=== PATIENT | female | born 1980 | race Caucasian/White ===

== ENCOUNTER 2016-04-29 12:23 | Emergency (ER) | payer MEDICAID ==
[2016-04-29] MEDS ORDERED: OPTIRAY 350 100 ML VIAL HMH IV ONE (12:24)
[2016-04-29] MEDS ORDERED: ONDANSETRON 4 MG VIAL ONE (13:55)
[2016-04-29] MEDS ORDERED: MORPHINE 4 MG/ML SYR ONE (13:56)
[2016-04-29] MEDS ORDERED: SODIUM CHLORIDE 0.9% 1,000 ML ONE (13:56)
[2016-04-29] MEDS ORDERED: DILAUDID 1 MG/ML AMP ONE (15:54)
[2016-04-29] MEDS ORDERED: PANTOPRAZOLE 40 MG VIAL IV ONE (16:27)
== END 2016-04-29 18:00 | disposition home or self-care (01) ==
LOC: ER 12:23
DX: R10.84 Generalized abdominal pain (principal); Z98.890 Other specified postprocedural states; I10 Essential (primary) hypertension; Z79.899 Other long term (current) drug therapy
CPT/HCPCS: 36415; 74177; 80053; 81003; 83690; 84703; 85025; 96361; 96372; 96374; 96375